=== PATIENT | female | born 1975 | race Caucasian/White ===

== ENCOUNTER 2017-03-21 18:18 | Emergency (ER) | payer OTHER ==
[~2017-03-21] VITALS: Ht 167.6 cm; Wt 75.3 kg
[2017-03-21 19:32] LABS: BASOPHIL % 0.3 % (0-2); PLATELET COUNT 237 x10^3mcL (130-400); RED CELL DISTRIBUTION WIDTH 13.7 % (11.5-14.5)
[2017-03-21 19:38] LABS: CALCIUM 9.2 mg/dL (8.5-10.1); CARBON DIOXIDE 26.8 mmol/L (21-32); CHLORIDE SERUM 107 mmol/L (98-107); CREATININE SERUM 0.8 mg/dL (0.6-1.0); GFR1 > 60 mL/min; GLUCOSE SERUM 97 mg/dL (74-106); POTASSIUM SERUM 4.1 mmol/L (3.5-5.1); SODIUM SERUM 142 mmol/L (136-145)
[2017-03-21 19:42] LABS: ALBUMIN 3.9 g/dL (3.4-5.0); ALKALINE PHOSPHATASE 80 U/L (46-116); ALT/SGPT 14 U/L (14-59); AST/SGOT 14 U/L (15-37); BILIRUBIN TOTAL 0.22 mg/dL (0.20-1.00); TOTAL PROTEIN, SERUM 7.1 g/dL (6.4-8.2); URIC ACID 2.7 mg/dL (2.6-6.0)
[2017-03-21 21:39] VITALS: BP 141/90
== END 2017-03-21 22:14 | disposition home or self-care (01) ==
LOC: ED 18:18
PROVIDERS: Emergency Medicine
DX: N83.202 Unspecified ovarian cyst, left side (principal); N83.201 Unspecified ovarian cyst, right side; I10 Essential (primary) hypertension
CPT/HCPCS: J2270; J2405